=== PATIENT | female | born 1945 | race Caucasian/White ===

== ENCOUNTER 2017-05-09 02:27 | Inpatient (IN) | payer MEDICARE, OTHER ==
[2017-05-09] VITALS (27 sets, daily range): BP systolic 93–127; BP diastolic 46–79; PULSE 58–119; RESP 11–24; Ht 167.6 cm; Wt 80.1 kg
[~2017-05-09] VITALS: Ht 167.6 cm; Wt 80.1 kg
[2017-05-09] MEDS ORDERED: SOD CHLORIDE 0.9% 1,000 ML IV STA (02:31)
[2017-05-09] MEDS ORDERED: ONDANSETRON 4 MG INJ IV STA (02:31)
[2017-05-09] MEDS ORDERED: morphine 4 MG/ML VIAL IV STA (02:31)
--- NOTE | 2017-05-09 02:42 | ERD ---
ER Documentation Chief Complaint Chief Complaint STEMI- from home, 20 mins substernal, non-radiating pain HPI This is a 71-year-old female brought in by rescue for ST segment elevation myocardial infarction. Apparently patient was 20 minutes ago substernal nonradiating pain was mild diaphoresis. EKG loya read as inferior wall AK. Given aspirin and nitro in the field. Patient continues to have chest pain here. Code STEMI activated. Dr. Clementine العراقي notified. Key Account Coordinator activated. ROS All systems reviewed and are negative except as per history of present illness. Allergies Allergies: Coded Allergies: No Known Allergy (Unverified , 05/09/17) PMhx/Soc Hx Cardiac Disorders: Yes (htn) Smoking Status: Unknown if ever smoked Physical Exam Vitals Vital Signs Date Time Temp Pulse Resp B/P Pulse Ox O2 Delivery O2 Flow Rate FiO2 05/09/17 02:30 53 15 114/68 100 Physical Exam Const: [] Head: Atraumatic Eyes: Normal Conjunctiva ENT: Normal External Ears, Nose and Mouth. Neck: Full range of motion..~ No meningismus. Resp: Clear to auscultation bilaterally Cardio: Regular rate and rhythm, no murmurs Abd: Soft, non tender, non distended. Normal bowel sounds Skin: No petechiae or rashes Back: No midline or flank tenderness Ext: No cyanosis, or edema Neur: Awake and alert Psych: Normal Mood and Affect Results 24 hrs Current Medications Medications (Trade) Dose Ordered Sig/Michelle Route PRN Reason Start Time Stop Time Status Last Admin Dose Admin Sodium Chloride (NS) 1,000 ml @ 1,000 mls/hr Q1H STAT IV 05/09/17 02:31 05/09/17 03:30 Morphine Sulfate (morphine) 4 mg ONCE STAT IV 05/09/17 02:31 05/09/17 02:33 DC Ondansetron HCl (Zofran Inj) 4 mg ONCE STAT IV 05/09/17 02:31 05/09/17 02:33 DC Procedures/MDM EKG: Rate/Rhythm: [Normal Sinus Rhythm] QRS, ST, T-waves: ST segment elevations 2 3 aVF Reciprocal changes in V4 V5 V6 Impression: STEMI Chest X-ray 1V Interpreted by me: Soft Tissue: No acute abnormalities Bones: No acute abnormalities Mediastinum/Cardiac Silhouette/Lungs: [No acute abnormalities] Patient's symptoms are concerning for cardiac cause will require inpatient workup and continuous monitoring. Further w/u for ischemia, arrhythmia, PE or dissection will be deferred to the inpatient team. Accepting Care Team: Current data and ongoing care discussed. Time: 241 Primary Provider: Hospitalist Consulting: Dr. Lin Outstanding Data: none Critical Care: Time: 31 minutes Treatments/Evaluations: Close monitoring and treatment of unstable vital signs, cardiorespiratory, and neurologic status, while maintaining tight balance of fluid, respiratory, and cardiac interventions. This time is independent of any procedural time Departure Diagnosis: Primary Impression: ST elevation myocardial infarction (STEMI) Involved coronary artery: unspecified coronary artery Qualified Code: I21.3 - ST elevation myocardial infarction (STEMI), unspecified artery Condition: Critical ELIZABETH CAMPBELL May 09, 2017 02:42
[2017-05-09 02:53] LABS: BASOPHIL # 0.1 10^3/ul (0.0-0.1); BASOPHILS % 0.6 % (0.0-2.0); EOSINOPHILS # 0.3 10^3/ul (0.0-0.5); EOSINOPHILS % 3.2 % (0.0-7.0); HEMATOCRIT 37.4 % (37.0-47.0); HEMOGLOBIN 12.3 g/dl (12.0-16.0); LYMPHOCYTES # 2.5 10^3/ul (0.8-2.9); LYMPHOCYTES % 25.1 % (15.0-51.0); MEAN CORPUSCULAR HEMOGLOBIN 28.2 pg (29.0-33.0); MEAN CORPUSCULAR HGB CONC 32.9 g/dl (32.0-37.0); MEAN CORPUSCULAR VOLUME 85.8 fl (82.0-101.0); MEAN PLATELET VOLUME 9.7 fl (7.4-10.4); MONOCYTE # 0.4 10^3/ul (0.3-0.9); MONOCYTES % 4.2 % (0.0-11.0); NEUTROPHIL # 6.7 10^3/ul (1.6-7.5); NEUTROPHILS % 66.7 % (39.0-77.0); PLATELET COUNT 245 10^3/UL (140-415); RED BLOOD COUNT 4.36 10^6/ul (4.20-5.40); RED CELL DISTRIBUTION WIDTH 13.3 % (11.5-14.5); WHITE BLOOD COUNT 10.1 10^3/ul (4.8-10.8)
--- NOTE | 2017-05-09 02:59 | RADRPT ---
PROCEDURE: Portable chest x-ray. CLINICAL INDICATION: Chest pain. TECHNIQUE: Portable AP view of the chest. COMPARISON: None. FINDINGS: Transcutaneous pacer pads project over the chest. There is vascular congestion. The cardiac silhou ette is enlarged. No pleural effusion is seen. There is no pneumothorax. IMPRESSION: 1. Vascular congestion. 2. Transcutaneous pacer pads. 3. Enlarged cardiac silhouette. RPTAT: HTAR .Sha Newell MD, MD Date Time Electronically viewed and signed by .Sha Newell MD, on 05/09/2017 02:59 .R/
[2017-05-09] MEDS ORDERED: LIDOCAINE 1% (MDV) 20 ML INJ ONE (03:05)
[2017-05-09] MEDS ORDERED: HEPARIN 1000 UNITS/ML 10 ML INJ ONE (03:05)
[2017-05-09] MEDS ORDERED: IOHEXOL 350MG/ML 50 ML BTL ONE ×2 (03:06→04:03)
[2017-05-09] MEDS ORDERED: IODIXANOL LOCM 100 ML BTL ONE (03:06)
[2017-05-09] MEDS ORDERED: MIDAZOLAM 1 MG/ML 2 ML INJ ONE (03:06)
[2017-05-09] MEDS ORDERED: FENTAnyl 50 MCG/ML VIAL ONE (03:06)
[2017-05-09] MEDS ORDERED: NITROGLYCERIN (IC) 100 MCG/ML INJ ONE (03:06)
[2017-05-09] MEDS ORDERED: VERAPAMIL 5 MG INJ ONE (03:06)
[2017-05-09 03:12] LABS: ALBUMIN/GLOBULIN RATIO 1.42; CALCIUM 9.7 mg/dl (8.4-10.2); CREATININE 1.39 mg/dl (0.44-1.00); POTASSIUM 4.1 mmol/L (3.5-5.1); TOTAL PROTEIN 6.8 g/dl (6.1-8.1)
[2017-05-09 03:25] LABS: TROPONIN-I 0.02 ng/ml (0.00-0.12)
[2017-05-09] MEDS ORDERED: ACETAMINOPHEN 650MG/20.3ML CUP PO PRN (03:30)
[2017-05-09] MEDS ORDERED: NITROGLYCERIN (SL) 0.4 MG TAB SL PRN (03:30)
[2017-05-09] MEDS ORDERED: ONDANSETRON 4 MG INJ IV PRN (03:30)
[2017-05-09] MEDS ORDERED: TICAGRELOR 90 MG TABLET ONE (03:36)
[2017-05-09 04:08] LABS: CHOL/HDL RATIO 5.1 RATIO; MAGNESIUM 1.6 mg/dl (1.7-2.5)
[2017-05-09] MEDS ORDERED: BIVALIRUDIN 250MG /NS 50 ML 50 ML IVPB ONE ×2 (04:14→04:15)
[2017-05-09] MEDS ORDERED: SOD CHLORIDE 0.9% 1,000 ML IV SCH (04:15)
--- NOTE | 2017-05-09 04:28 | OPR ---
Date/Time of Note Date/Time of Note DATE: 05/09/17 TIME: 04:20 Operative Report Procedure Date: May 09, 2017 Preoperative Diagnosis Myocardial infarction Postoperative Diagnosis Obstructive coronary artery disease Operation/Procedure Performed Left heart catheterization Right and left coronary angiogram Interpretation and supervision of right left coronary angiogram Left ventricular pressure measurements and left ventriculogram PCI of the mid RCA with the placement of a 3.0 x 20 mm Synergy drug-eluting stent, postdilated to 3.5 mm Intravascular ultrasound of the RCA Right femoral artery approach Conscious sedation Surgeon see signature line Bradder None Anesthesia Type: other (Conscious sedation) Estimated Blood Loss: minimal Transfusion none Specimen None Grafts/Implants 3.0 x 20 mm Synergy drug-eluting stent Complications none Pt Condition Post Procedure: guarded Procedure Description Findings Hemodynamics LV pressure 130/8 with EDP of 28 Aortic on pullback 134/58 Coronary anatomy Left main is a medium caliber vessel with no significant disease. Circumflex is a medium caliber vessel and after the bifurcation of the second obtuse marginal, there is an 80% stenosis. LAD is a medium caliber vessel with a proximal 20% stenosis, mid vessel after the second diagonal which is a medium caliber vessel, there is a 40-50% stenosis in the mid LAD RCA is a medium caliber vessel and dominant with a mid 99% stenosis Left ventriculogram with ejection fraction 60%. Patient was brought to the [facility] T[facility]. Informed consent was obtained. Patient was prepped and draped as per protocol. Right femoral artery access was obtained with ultrasound guidance using a micropuncture kit. 6 [place] sheath was placed in the right femoral artery. JL 3.5 diagnostic catheter was used to engage the left main and angiogram was performed. We next used a 6 [place] JR4 catheter to engage the RCA antrum was performed. This demonstrated severe stenosis in the mid RCA which was our culprit lesion. Angiomax was used for anticoagulation, a run through wire was used to cross the lesion with moderate difficulty. We predilated and stented with a 3.0 x 20 mm Synergy drug-eluting stent. We then postdilated initially with a 3.25 noncompliant balloon and a 3.5 noncompliant balloon. Given the tapering of the vessel, I proceeded with intravascular ultrasound to confirm good stent apposition. The stent was well opposed except for the ostial portion of the stent with a small area of poor apposition. We went back in with a 3.5 noncompliant balloon in this region and post dilation was performed. There was an excellent angiographic result with NAZIA-3 flow with no evidence of dissection. We next entered the left ventricle and left ventriculogram was performed. We then use an Angio-Seal device in the right femoral artery. By the end of the procedure, patient with minimal chest discomfort and remained hemodynamically stable. Findings discussed with patient 's daughter. Recommendations Dual antiplatelet therapy, aggressive risk factor modification. Kenny Lin DO May 09, 2017 04:28
[2017-05-09] MEDS ORDERED: FUROSEMIDE 20 MG INJ IV ONE (04:30)
[2017-05-09] MEDS: BIVALIRUDIN 250MG /NS 50 ML 50 ML IVPB SCH ×3 (04:30→07:37)
[2017-05-09] MEDS ORDERED: FUROSEMIDE 40 MG INJ ONE (04:31)
--- NOTE | 2017-05-09 04:32 | CONS ---
Date/Time of Note Date/Time of Note DATE: 05/09/17 TIME: 04:31 Assessment/Plan Assessment/Plan Additional Assessment/Plan Inferior ST elevation DE Obstructive coronary artery disease status post PCI to the RCA with drug- eluting stenting Acute decompensated diastolic congestive heart failure History of hypertension Preserved ejection fraction Renal dysfunction Tobacco use -Patient with evidence of inferior ST elevation DE. Angiogram with severe stenosis in the RCA and moderate stenosis in the circumflex. Patient status post drug-eluting stenting to the RCA. Continue dual antiplatelet therapy, statin therapy, check echocardiogram. If heart rate and blood pressure permits , would start beta-ashly as tolerated. Hold off on CHERY inhibitor given renal dysfunction. Patient with hypoxia when initially presented in mild pulmonary vascular congestion on chest x-ray and coarse breath sounds on examination. Status post 1 dose of IV Lasix after cardiac cath. ICU care Consultation Date/Type/Reason Admit Date/Time Type of Consultation: cv Reason for Consultation Myocardial infarction Hx of Present Illness This is a 71-year-old female with past medical history of diabetes, hypertension , tobacco use who presents with shortness of breath waxing and waning for 3 or 4 days and intermittent chest pain, worse so this evening. Patient found to have inferior ST elevation DE and code STEMI was called. Patient taken emergently to the cardiac Optician. Patient status post coronary intervention with PCI to RCA. At the current time, chest pain is minimal, denies shortness of breath, dizziness or lightheadedness. History obtained from the patient and 2 daughters. 12 point review of systems was performed with all pertinent positives and negatives mentioned above and all else is negative Past Medical History Medical History: coronary artery disease, diabetes, high cholesterol, hypertension Family History Significant Family History: heart disease Social History Smoking Status: Current every day smoker Exam/Review of Systems Vital Signs Vitals Vital Signs Date Time Temp Pulse Resp B/P Pulse Ox O2 Delivery O2 Flow Rate FiO2 05/09/17 02:41 Nasal Cannula 3 05/09/17 02:30 53 15 114/68 100 Exam No apparent distress Constitutional: alert, obese, oriented Head: normocephalic Respiratory: other (Coarse breath sounds bilaterally, no wheezing) Cardiovascular: other (S1-S2 heard), regular rate and rhythm Gastrointestinal: bowel sounds, non-tender, soft Extremities: edema (Trace) Results Result Diagram: 05/09/172 05/09/17 0242 Results 24 hrs Laboratory Tests Test 05/09/17 02:42 White Blood Count 10.1 Red Blood Count 4.36 Hemoglobin 12.3 Hematocrit 37.4 Mean Corpuscular Volume 85.8 Mean Corpuscular Hemoglobin 28.2 L Mean Corpuscular Hemoglobin Concent 32.9 Red Cell Distribution Width 13.3 Platelet Count 245 Mean Platelet Volume 9.7 Neutrophils % 66.7 Lymphocytes % 25.1 Monocytes % 4.2 Eosinophils % 3.2 Basophils % 0.6 Nucleated Red Blood Cells % 0.0 Neutrophils # 6.7 Lymphocytes # 2.5 Monocytes # 0.4 Eosinophils # 0.3 Basophils # 0.1 Nucleated Red Blood Cells # 0.0 Sodium Level 139 Potassium Level 4.1 Chloride Level 103 Carbon Dioxide Level 23 Anion Gap 17 H Blood Urea Nitrogen 32 H Creatinine 1.39 H Glucose Level 237 H Calcium Level 9.7 Magnesium Level 1.6 L Total Bilirubin 0.0 L Direct Bilirubin 0.00 Indirect Bilirubin 0.0 Aspartate Amino Transf (AST/SGOT) 24 Alanine Aminotransferase (ALT/SGPT) 27 Alkaline Phosphatase 92 Troponin I 0.020 B-Type Natriuretic Peptide 592 H Total Protein 6.8 Albumin 4.0 Globulin 2.80 Albumin/Globulin Ratio 1.42 Triglycerides Level 170 H Cholesterol Level 204 H LDL Cholesterol, Calculated 130 HDL Cholesterol 40 Cholesterol/HDL Ratio 5.1 Thyroid Stimulating Hormone (TSH) Pending Medications Medications Current Medications Ondansetron HCl (Zofran Inj) 4 mg Q6H PRN IV NAUSEA AND/OR VOMITING; Start at 03:30 Nitroglycerin (Nitroglycerin (Sl Tab) 0.4 Mg) 1 tab Q5M PRN SL CHEST PAIN; Start 05/09/17 at 03:30 Acetaminophen (Tylenol Liquid) 650 mg Q6H PRN PO PAIN LEVEL 1-3 OR FEVER; Start 05/09/17 at 03:30 Pantoprazole (Protonix Iv) 40 mg DAILY@06 IV ; Start 05/09/17 at 06:00 Procedures Procedures ECG with inferior ST elevation DE Kenny Lin DO May 09, 2017 04:32
[2017-05-09] MEDS ORDERED: MAGNESIUM SULFATE 1 GM/D5W 100 ML IVPB ONE ×2 (05:00→12:00)
[2017-05-09 05:52] LABS: THYROID STIMULATING HORMONE 4.71 MIU/L (0.465-4.680)
[2017-05-09] MEDS ORDERED: PANTOPRAZOLE 40 MG INJ IV SCH (06:00)
[2017-05-09] MEDS ORDERED: GLUCOSE GEL 15 GRAM TUBE BUCCAL PRN (06:15)
[2017-05-09] MEDS ORDERED: GLUCAGON 1 MG INJ IM PRN (06:15)
[2017-05-09] MEDS ORDERED: GLUCOSE GEL 15 GRAM TUBE PO PRN ×2 (06:15)
[2017-05-09] MEDS ORDERED: DEXTROSE 50% 50 ML SYRINGE IV PRN ×2 (06:15)
[2017-05-09] MEDS: INSULIN ASPART [NOVOLOG] 3 ML PEN SC SCH ×4 (08:54→20:55)
[2017-05-09] MEDS: ASPIRIN (EC) 81 MG TAB PO SCH (09:06)
[2017-05-09] MEDS: TICAGRELOR 90 MG TABLET PO SCH ×2 (09:08→20:53)
--- NOTE | 2017-05-09 09:36 | HP ---
Date/Time of Note Date/Time of Note DATE: 05/09/17 TIME: 09:31 Assessment/Plan VTE Prophylaxis VTE Prophylaxis Intervention: SCD's Lines/Catheters IV Catheter Type (from [facility]): Saline Lock Urinary Cath still in place: Yes Assessment/Plan Chief Complaint/Hosp Course This is a 71-year-old female was admitted to the ICU floor for: #1 acute STEMI: Patient had ST elevations in 2 3 and aVF. Patient was taken to the [facility] emergently. Patient had a drug-eluting stent placed in the RCA. Patient will continue on dual antiplatelet therapy. Will check a hemoglobin C, lipid panel, thyroid. #2 diabetes mellitus: We will hold patient's home medications, continue patient on insulin sliding scale #3 hypertension: We will continue patient's home medications. Patient likely also would benefit from an CHERY inhibitor as well however we will need to monitor renal function for this. Problems: HPI/ROS Admit Date/Time Admit Date/Time Hx of Present Illness Chief complaint: Chest pain This is a 71-year-old female who presented to the ER with chest pain. She was subsequently found to have a ST elevation in 2 3 and aVF. Apparently as per the daughter she stated that the patient started noticing shortness of breath when walking while she was in [place]. Family does state that they flew to [place]. The shortness of breath was on and off throughout the weekend. And then this morning at around 1:30 AM the patient called the daughter stating that she had chest pain and pressure. Patient also was noted to be diaphoretic. Stat STEMI was called. Patient was taken into the [facility] and had a stent to the RCA put in. Allergies: NKDA Medications: See SHIRA PERKINS Const: As per HPI Eyes : No pain discharge or redness or change in visual acuity ENT: No pain, sore throat, congestion, congestion, dysphagia or discharge Respiratory: No shortness of breath, cough, sputum, wheezing, or pleuritic pain Cardiovascular: As per HPI GI : no change in appetite, abdominal pain, nausea, vomiting, diarrhea, constipation, or change in the color his stool Genitourinary: No dysuria, hematuria, flank pain , discharge or CVA tenderness Musculoskeletal: No joint pain, back pain, neck pain, restricted range of motion in neck or joints Skin: No rash, bruising or hives Neuro: No headache, dizziness, syncope, seizure, focal weakness Endocrine: No polyuria, polydipsia, temperature intolerance Psych: No hallucination, depression, anxiety or suicidal ideation PMH/Family/Social Past Medical History Diabetes mellitus, hypertension, hypothyroidism Past Surgical History Cholecystectomy, adrenal tumor removal Family History Significant Family History: heart disease (Mom, brothers) Social History Alcohol Use: none Smoking Status: Current some day smoker (1 cigarette a day 20) Drug Use: none Exam/Review of Systems Vital Signs Vitals Vital Signs Date Time Temp Pulse Resp B/P Pulse Ox O2 Delivery O2 Flow Rate FiO2 05/09/17 09:00 63 12 111/67 98 Room Air 05/09/17 07:30 97.1 05/09/17 06:30 10.0 Intake and Output 05/08/17 05/08/17 05/09/17 15:00 23:00 07:00 Intake Total 150.00 ml Output Total 800 ml Balance -650.00 ml Exam Exam General: Patient was seen and examined at the bedside status post cardiac cath. HEENT: Atraumatic, normocephalic. The pupils are equal, round and reactive. Extraocular motor are intact Neck: Supple with full range of motion. No rigidity or meningismus Chest: Nontender Lungs: Clear to auscultation bilaterally no crackles rales or wheezing Heart: Normal S1-S2, Regular rhythm and rate. No murmur, S3, or S4 Abdomen: Soft , nontender, nondistended , bowel sounds are present. No guarding no rebound tenderness , No masses or organomegaly. No costovertebral temporal angle mass Extremities: Normal to inspection, no edema no cyanosis Neurologic: Normal mental status, speech normal, cranial nerves II through XII are intact, motor and sensory are intact, no focal weakness Labs Result Diagram: 05/09/17 0242 05/09/17 0242 Medications Medications Current Medications Ondansetron HCl (Zofran Inj) 4 mg Q6H PRN IV NAUSEA AND/OR VOMITING; Start at 03:30 Nitroglycerin (Nitroglycerin (Sl Tab) 0.4 Mg) 1 tab Q5M PRN SL CHEST PAIN Last administered on 05/09/17t 05:35; Admin Dose 1 TAB; Start 05/09/17 at 03:30 Acetaminophen (Tylenol Liquid) 650 mg Q6H PRN PO PAIN LEVEL 1-3 OR FEVER; Start 05/09/17 at 03:30 Pantoprazole (Protonix Iv) 40 mg DAILY@06 IV Last administered on 05/09/17 05 :35; Admin Dose 40 MG; Start 05/09/17 at 06:00 Aspirin (Halfprin) 81 mg DAILY PO Last administered on 05/09/17 09:06; Admin Dose 81 MG; Start 05/09/17 at 09:00 Ticagrelor (Brilinta) 90 mg BID PO Last administered on 05/09/17 09:08; Admin Dose 90 MG; Start 05/09/17 at 09:00 Atorvastatin Calcium (Lipitor) 80 mg DAILY@21 PO ; Start 05/09/17 at 21:00 Diagnostic Test (Pha) (Accu-Chek) 1 ea 02 XX ; Start 05/10/17 at 02:00 Miscellaneous Information 1 ea NOTE XX ; Start 05/09/17 at 06:15 Glucose (Glutose) 15 gm Q15M PRN PO DECREASED GLUCOSE; Start 05/09/17 at 06:15 Glucose (Glutose) 22.5 gm Q15M PRN PO DECREASED GLUCOSE; Start 05/09/17 at 06: 15 Dextrose (D50w Syringe) 25 ml Q15M PRN IV DECREASED GLUCOSE; Start 05/09/17 at 06:15 Dextrose (D50w Syringe) 50 ml Q15M PRN IV DECREASED GLUCOSE; Start 05/09/17 at 06:15 Glucagon (Glucagen) 1 mg Q15M PRN IM DECREASED GLUCOSE; Start 05/09/17 at 06: 15 Glucose (Glutose) 15 gm Q15M PRN BUCCAL DECREASED GLUCOSE; Start 05/09/17 at 06:15 JAIR ROWE May 09, 2017 09:36
[2017-05-09] MEDS: INSULIN GLARGINE [LANtus] 3 ML PEN SC SCH (13:59)
--- NOTE | 2017-05-09 16:13 | RADRPT ---
Echocardiogram Report Patient Name: VIKTORIYA SOTO Gender: Female Date: 1945 Study Date: 09-May-2017 [employer] Courtesy Clerk: Marlen Sifuentes RDCS Location: 110 Ref. Physician: JAIR ROWE Quality: Good Procedures: Transthoracic echocardiogram with complete 2D, M-Mode, and doppler examination. Indications: STEMI. 2D/M Mode Doppler Measurement Value Normal Ranges Measurement Value Normal Ranges LVIDd 2D 4.6 3.5 - 5.6 cm AV Peak Mitch 1.3 m/sec LVIDs 2D 3.4 2.1 - 4.1 cm AV Peak PG 6.3 mmHg LVPWd 2D 1.3 0.6 - 1.1 cm AI Peak PG 63.2 mmHg IVSd 2D 1.2 0.6 - 1.1 cm AI Peak Mitch 4.0 m/sec AoR Diam 2D 3.0 2.0 - 3.7 cm AI PHT 578.2 msec EDV 2D 97.8 cm3 LVOT Peak Mitch 0.5 m/sec ESV 2D 38.4 cm3 LVOT Peak PG 1.2 mmHg LA Dimen 2D 3.5 2.3 - 4.0 cm MV E Peak Mitch 0.6 m/sec MV A Peak Mitch 0.9 m/sec MV E/A 0.7 MV Decel Time 220 msec MV Decel [place] 3 MV E/A 0.7 Findings Left Ventricle: Normal left ventricular systolic function. Normal left ventricular cavity size. Mild concentric left ventricular hypertrophy. Ejection fraction is visually estimated at 55 %. Tissue Doppler/Mitral Doppler indices are consistent with impaired relaxation (Stage I diastolic dysfunction). These segments of the LV are hypokinetic inferolateral base, inferior base segment and inferior mid segment. Right Ventricle: Normal right ventricular size. Normal right ventricular systolic function. Left Atrium: The left atrium is normal in size. Right Atrium: The right atrium is normal in size. Mitral Valve: Mitral valve leaflets appear mildly thickened. Mild mitral annular calcification. Mild mitral valve regurgitation. Aortic Valve: No hemodynamically significant aortic stenosis by doppler. Aortic cusps appear mildly calcified. Mild aortic valve regurgitation. Tricuspid Valve: Normal appearance and function of the tricuspid valve with trace physiologic regurgitation. Pulmonic Valve: Normal pulmonic valve appearance. There is trace pulmonic regurgitation. Pericardium: Normal pericardium with no significant pericardial effusion. Aorta: Normal aortic root. IVC: Normal size and normal respiratory collapse consistent with normal right atrial pressure. Conclusions 1.Normal left ventricular systolic function. Normal left ventricular cavity size. Mild concentric left ventricular hypertrophy. Ejection fraction is visually estimated at 55 %. Tissue Doppler/Mitral Doppler indices are consistent with impaired relaxation (Stage I diastolic dysfunction). 2.Normal right ventricular size. Normal right ventricular systolic function. 3.The left atrium is normal in size. 4.The right atrium is normal in size. 5.Mild mitral valve regurgitation. 6.No hemodynamically significant aortic stenosis by doppler. Mild aortic valve regurgitation. 7.Normal appearance and function of the tricuspid valve with trace physiologic regurgitation. 8.Normal pericardium with no significant pericardial effusion. Electronically Signed By: Kenny Lin 09-May-2017 16:12:34 -0800 Patient Name: VIKTORIYA SOTO Study Date: 09-May-2017 [id number]
--- NOTE | 2017-05-09 19:59 | HP ---
Date/Time of Note Date/Time of Note DATE: 05/09/17 TIME: 19:41 Assessment/Plan VTE Prophylaxis VTE Prophylaxis Intervention: ambulation, anti-embolic stocking VTE Contraindication Reason: peripheral vascular disease Lines/Catheters IV Catheter Type (from Nrsg): Peripheral IV Central line still needed: No Urinary Cath still in place: Yes Reason Cath still needed: other (indicate) (s/p ptca.) Assessment/Plan Assessment/Plan #1. IHD angina; acute STEMI:s/p drug-eluting stent placed in the RCA. Patient will continue on dual antiplatelet therapy. Will check a hemoglobin C, lipid panel, thyroid. #2 diabetes mellitus type 2: on insulin sliding scale #3 hypertension: We will continue patient's home medications. Patient likely also would benefit from an CHERY inhibitor as well however we will need to monitor renal function for this. 4.DYslipidemia 5.Memory impairment 6.Obesity 7. LBP 8.BOOGIE of multiple joints 9.Anxiety d/o 10.Nausea and vomiting improved 11.Bradycardia 12.Hx of smoking and likes fatty food 13.Delusional ideas (everything else, except known risk factors,according to her, as a target to blame for her mi) obot the disease and her genetics and life style. In a presence of a daughter and son discussed the details of prevention of next SD. 14.Hypotension Cont'd Hospitalization Reason: s/p ptca. HPI/ROS Admit Date/Time Admit Date/Time Cp. Hx of Present Illness This is a 71-year-old female who presented to the ER with chest pain. She was having cp on and off more than a month but last week it become more troublesome. 05/03/2017 they flue to . She realized that she can't walk as she was able to walk before due to of a sob and ss pressure sensation. She was using some tablets from [employer] and relaxing drops which helped her. 3 days ago they returned from . Her pressure sensation got worse. Last night despite of cp and pressure sensation she went to the bed. She was unable to lay down. He straggled for air and to overcome a cp. Condition got worse at midnight, when the cp become intolerable. Nobody was able to help her except the grandson who is a student in [employer]. Patient also was noted to be nauseous, vomited, become diaphoretic and she was thinking that se is going to dye. He activated a system and paramedics arrived. 4 tablets of aspirin with other meds were given. Stat STEMI was called. She realized the necessity of the procedure and agreed to perform a PTCA. Patient was taken into the [facility] and had a stent to the RCA put in. Now she fells better. ROS Constitutional: chills, diaphoresis, fatigue, improved, nausea, poor po, No disoriented, No febrile, No no complaints, No other, No weight change Eyes: redness, No discharge, No no complaints, No other, No pain, No visual change ENT: congestion, No bleeding, No discharge, No dysphagia, No no complaints, No other, No pain , No sore throat Respiratory: No cough, No no complaints, No other, No pain, No pleuritic pain, No shortness of breath, No sputum, No wheezing Cardiovascular: chest pain (derrick now.) Gastrointestinal: constipation, decreased appetite, flatus, nausea, No blood, No diarrhea, No no complaints, No other, No pain, No passing stool , No vomiting Genitourinary: other (armstrong in place.), No bleeding, No discharge, No dysuria, No flank pain, No hematuria, No no complaints Musculoskeletal: back pain, bone/joint pain, No neck pain, No no complaints, No other, No restricted range of motion, No swelling Skin: bruising, erythema, pruritis, No laceration, No no complaints, No other, No rash, No skin lesions Neurologic: dizziness, headache, No confusion, No focal-weakness, No no complaints, No other, No seizure, No syncope Endocrine: No dry skin, No no complaints, No other, No polydypsia, No polyuria , No temp intolerance, No weight change Lymphatic: No adenopathy, No lymphadema, No no complaints, No other, No tender nodes Psychological: anxiety, depression, No confusion, No nl mood/affect, No no complaints, No other, No suicidal Immunologic: No immunodeficiency, No no complaints, No other, No pruritis, No rhinitis, No urticaria PMH/Family/Social Past Medical History Medical History: angina, coronary artery disease, diabetes, GERD, high cholesterol, hypertension Family History Significant Family History: heart disease, diabetes Social History Alcohol Use: none Smoking Status: Current every day smoker Drug Use: none Exam/Review of Systems Vital Signs Vitals Vital Signs Date Time Temp Pulse Resp B/P Pulse Ox O2 Delivery O2 Flow Rate FiO2 05/09/17 18:00 60 18 99/55 95 Room Air 05/09/17 16:00 97.2 05/09/17 06:30 10.0 Intake and Output 05/08/17 05/08/17 05/09/17 15:00 23:00 07:00 Intake Total 150.00 ml Output Total 800 ml Balance -650.00 ml Exam Constitutional: alert, oriented, well developed, No distress, No frail, No non-verbal, No other Psych: anxiety, depression, No confusion, No nl mood/affect, No no complaints, No other, No suicidal Head: atraumatic, normocephalic, No hematomas, No lacerations, No other Eyes: EOMI, PERRL, No fundi, disc, No icteric, No nl conjunctiva, No nl lids, No nl sclera, No other ENMT: nl external ears & nose, nl nasal mucosa & septum, tympanic membranes, No intubated, No mucosa pink and moist, No nl lips & teeth, No other Neck: bruits, jvd, nuchal rigidity, thyromegaly, No masses, No non-tender, No other, No supple Respiratory: clear to auscultation, diminished breath sounds, No congested cough, No crackles/rales, No intercostal retraction, No labored breathing, No normal air movement, No other, No respirations, No tactile fremitus, No wheezing Cardiovascular: bruits, jugular venous distention (JVD), systolic murmur Gastrointestinal: bowel sounds, nl liver, spleen, non-tender, soft, No ascites, No distended, No firm, No hepatomegaly, No mass, No other, No rebound or guarding, No splenomegaly, No surgical scars, No tender Genitourinary - Female: No CMT, No CVA tenderness, No nl adnexae, No nl external genitalia, No other, No uterus Musculoskeletal: joint tenderness, muscle tone, muscle weakness Extremities: normal pulses, No calf tenderness, No clubbing, No cyanosis, No edema, No other, No palpable cord, No pitting pedal edema, No tenderness Neurological: 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, DTR's symmetric, focal weakness, nl speech, numbness, No confused, No lethargic, No nl mental status, No nl strength, No other, No reflexes, No unresponsive Skin: diaphoresis, No ecchymosis, No laceration, No nl turgor, No other, No puncture, No rash or lesions Labs Result Diagram: 05/09/1724105/09/17241 Medications Medications Current Medications Ondansetron HCl (Zofran Inj) 4 mg Q6H PRN IV NAUSEA AND/OR VOMITING; Start at 03:30 Nitroglycerin (Nitroglycerin (Sl Tab) 0.4 Mg) 1 tab Q5M PRN SL CHEST PAIN Last administered on 05/09/17 05:35; Admin Dose 1 TAB; Start 05/09/17 at 03:30 Acetaminophen (Tylenol Liquid) 650 mg Q6H PRN PO PAIN LEVEL 1-3 OR FEVER; Start 05/09/17 at 03:30 Aspirin (Halfprin) 81 mg DAILY PO Last administered on 05/09/17 09:06; Admin Dose 81 MG; Start 05/09/17 at 09:00 Ticagrelor (Brilinta) 90 mg BID PO Last administered on 05/09/17 09:08; Admin Dose 90 MG; Start 05/09/17 at 09:00 Atorvastatin Calcium (Lipitor) 80 mg DAILY@21 PO ; Start 05/09/17 at 21:00 Diagnostic Test (Pha) (Accu-Chek) 1 ea 02 XX ; Start 05/10/17 at 02:00 Miscellaneous Information 1 ea NOTE XX ; Start 05/09/17 at 06:15 Glucose (Glutose) 15 gm Q15M PRN PO DECREASED GLUCOSE; Start 05/09/17 at 06:15 Glucose (Glutose) 22.5 gm Q15M PRN PO DECREASED GLUCOSE; Start 05/09/17 at 06: 15 Dextrose (D50w Syringe) 25 ml Q15M PRN IV DECREASED GLUCOSE; Start 05/09/17 at 06:15 Dextrose (D50w Syringe) 50 ml Q15M PRN IV DECREASED GLUCOSE; Start 05/09/17 at 06:15 Glucagon (Glucagen) 1 mg Q15M PRN IM DECREASED GLUCOSE; Start 05/09/17 at 06: 15 Glucose (Glutose) 15 gm Q15M PRN BUCCAL DECREASED GLUCOSE; Start 05/09/17 at 06:15 Insulin Glargine (Lantus) 16 unit DAILY@08 SC Last administered on 05/09/17t 13:59; Admin Dose 16 UNIT; Start 05/09/17 at 13:00 Pantoprazole (Protonix Tab) 40 mg DAILY@06 PO ; Start 05/10/17 at 06:00 JASON BALTAZAR MD May 09, 2017 19:53
[2017-05-09] MEDS: ATORVASTATIN 80 MG TAB PO SCH (20:52)
[2017-05-10] VITALS (24 sets, daily range): BP systolic 89–124; BP diastolic 40–91; PULSE 59–83; RESP 12–23
[2017-05-10] MEDS: ACCU-CHEK XX SCH (01:32)
[2017-05-10 05:14] LABS: BASOPHILS % 0.3 % (0.0-2.0); EOSINOPHILS # 0.1 10^3/ul (0.0-0.5); EOSINOPHILS % 0.9 % (0.0-7.0); HEMATOCRIT 35.9 % (37.0-47.0); HEMOGLOBIN 11.8 g/dl (12.0-16.0); LYMPHOCYTES # 1.6 10^3/ul (0.8-2.9); LYMPHOCYTES % 13.8 % (15.0-51.0); MEAN CORPUSCULAR HEMOGLOBIN 28.1 pg (29.0-33.0); MEAN CORPUSCULAR HGB CONC 32.9 g/dl (32.0-37.0); MEAN CORPUSCULAR VOLUME 85.5 fl (82.0-101.0); MEAN PLATELET VOLUME 9.9 fl (7.4-10.4); MONOCYTE # 0.6 10^3/ul (0.3-0.9); MONOCYTES % 5.2 % (0.0-11.0); NEUTROPHIL # 9.3 10^3/ul (1.6-7.5); NEUTROPHILS % 79.6 % (39.0-77.0); PLATELET COUNT 239 10^3/UL (140-415); RED CELL DISTRIBUTION WIDTH 13.5 % (11.5-14.5); WHITE BLOOD COUNT 11.7 10^3/ul (4.8-10.8)
[2017-05-10 05:52] LABS: CALCIUM 8.8 mg/dl (8.4-10.2); CREATININE 1.79 mg/dl (0.44-1.00); POTASSIUM 4.2 mmol/L (3.5-5.1)
[2017-05-10] MEDS ORDERED: MAGNESIUM SULFATE 2 GM/50 ML 50 ML IVPB ONE (06:30)
[2017-05-10] MEDS: SOD CHLORIDE 0.9% 1,000 ML IV SCH ×2 (06:54→19:53)
[2017-05-10] MEDS: PANTOPRAZOLE (EC) 40 MG TAB PO SCH (06:55)
[2017-05-10] MEDS: INSULIN ASPART [NOVOLOG] 3 ML PEN SC SCH ×4 (07:35→21:35)
--- NOTE | 2017-05-10 08:45 | PN ---
Date/Time of Note Date/Time of Note DATE: 05/10/17 TIME: 08:36 Assessment/Plan VTE Prophylaxis VTE Prophylaxis Intervention: ambulation, anti-embolic stocking VTE Contraindication Reason: peripheral vascular disease Lines/Catheters IV Catheter Type (from Nrs): Peripheral IV Urinary Cath still in place: Yes Reason Cath still needed: urinary retention Assessment/Plan Assessment/Plan 1. IHD angina; acute STEMI:s/p drug-eluting stent placed in the RCA. Patient will continue on dual antiplatelet therapy. Will check a hemoglobin C, lipid panel, thyroid. 2 diabetes mellitus type 2: on insulin sliding scale 3 hypertension: We will continue patient's home medications. Patient likely also would benefit from an CHERY inhibitor as well however we will need to monitor renal function for this. 4.Dyslipidemia 5.Memory impairment 6.Obesity 7. LBP 8.BOOGIE of multiple joints 9.Anxiety d/o 10.Nausea and vomiting improved 11.Bradycardia 12.Hx of smoking and likes fatty food 13.Delusional ideas (everything else, except known risk factors,according to her, as a target to blame for her mi) about the disease and her genetics and life style. Again discussed the details of prevention of next AL. Doctor's and patient's role. 14.Hypotension 15.Hypomagnesemia 16.Constipation Cont'd Hospitalization Reason: s/p mi. Subjective 24 Hr Interval Summary Free Text/Dictation Weakness, constipation. I am weak. No cp. Constitutional: diaphoresis, improved, poor po, requiring IVF, requiring O2, No chills, No disoriented, No febrile, No no complaints, No other Eyes: No discharge, No no complaints, No other, No pain, No redness, No visual change ENT: No bleeding, No congestion, No discharge, No dysphagia, No no complaints, No other, No pain, No sore throat Respiratory: shortness of breath (mild.), No cough, No no complaints, No other, No pain, No pleuritic pain, No sputum, No wheezing Cardiovascular: orthopenea, No chest pain, No edema, No lightheadedness, No no complaints, No other, No palpitations, No paroxysmal nocturnal dyspnea Gastrointestinal: constipation, decreased appetite, flatus, nausea, passing stool, No blood, No diarrhea, No no complaints, No other, No pain, No vomiting Genitourinary: dysuria, other (armstrong causing dyscomfort.), No bleeding, No discharge, No flank pain, No hematuria, No no complaints Musculoskeletal: back pain, bone/joint pain, neck pain, restricted range of motion, No no complaints, No other, No swelling Skin: erythema, No bruising, No laceration, No no complaints, No other, No pruritis, No rash , No skin lesions Neurologic: confusion (on and off.), dizziness, headache, other Endocrine: No dry skin, No no complaints, No other, No polydypsia, No polyuria , No temp intolerance Lymphatic: No adenopathy, No lymphadema, No no complaints, No other, No tender nodes Psychological: anxiety, other (become anxious when i opened the question about preventive metods, including cigaret smoking and lipid lowering measures as a risk reduction strategy for mi.) Exam/Review of Systems Vital Signs Vitals Vital Signs Date Time Temp Pulse Resp B/P Pulse Ox O2 Delivery O2 Flow Rate FiO2 05/10/17 06:00 69 17 104/56 94 Room Air 05/10/17 04:00 98.4 05/09/17 06:30 10.0 Intake and Output 05/09/17 05/09/17 05/10/17 15:00 23:00 07:00 Intake Total 400 ml 490 ml 115 ml Output Total 900 ml 610 ml 250 ml Balance -500 ml -120 ml -135 ml Exam Constitutional: alert, distress, oriented, well developed, No frail, No non-verbal, No obese, No other Psych: anxiety, depression, No confusion, No nl mood/affect, No no complaints, No other, No suicidal Head: atraumatic, normocephalic, No hematomas, No lacerations, No other Eyes: EOMI, PERRL, nl conjunctiva, nl lids, No fundi, disc, No icteric, No nl sclera, No other ENMT: nl external ears & nose, nl nasal mucosa & septum, No intubated, No mucosa pink and moist, No nl lips & teeth, No other, No tympanic membranes Neck: bruits, non-tender, supple Respiratory: clear to auscultation, congested cough, diminished breath sounds, normal air movement, No crackles/rales, No intercostal retraction, No labored breathing, No other , No respirations, No tactile fremitus, No wheezing Cardiovascular: bruits, nl pulses, systolic murmur, No S3, No S4, No diastolic murmur, No edema, No gallop, No irregular rhythm, No jugular venous distention (JVD), No murmurs/extra sounds, No other, No regular rate and rhythm, No rub Gastrointestinal: bowel sounds, nl liver, spleen, soft, No ascites, No distended, No firm, No hepatomegaly, No mass, No non-tender, No other, No rebound or guarding, No splenomegaly, No surgical scars, No tender Genitourinary - Female: other (armstrong drains clear urin.) Musculoskeletal: joint tenderness, muscle weakness Extremities: normal pulses, No calf tenderness, No clubbing, No cyanosis, No edema, No other, No palpable cord, No pitting pedal edema, No tenderness 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 (hearing impairment.), nl mental status, nl speech, numbness Skin: diaphoresis, ecchymosis, No laceration, No nl turgor, No other, No puncture, No rash or lesions Results Result Diagram: 05/10/175 05/10/17 0445 Results 24 hrs Laboratory Tests Test 05/09/17 08:51 05/09/17 12:53 05/09/17 16:44 05/09/17 20:52 Bedside Glucose 230 H 255 H 105 144 Test 05/10/17 04:45 White Blood Count 11.7 H Red Blood Count 4.20 Hemoglobin 11.8 L Hematocrit 35.9 L Mean Corpuscular Volume 85.5 Mean Corpuscular Hemoglobin 28.1 L Mean Corpuscular Hemoglobin Concent 32.9 Red Cell Distribution Width 13.5 Platelet Count 239 Mean Platelet Volume 9.9 Neutrophils % 79.6 H Lymphocytes % 13.8 L Monocytes % 5.2 Eosinophils % 0.9 Basophils % 0.3 Nucleated Red Blood Cells % 0.0 Neutrophils # 9.3 H Lymphocytes # 1.6 Monocytes # 0.6 Eosinophils # 0.1 Basophils # 0.0 Nucleated Red Blood Cells # 0.0 Sodium Level 136 Potassium Level 4.2 Chloride Level 101 Carbon Dioxide Level 27 Anion Gap 12 Blood Urea Nitrogen 36 H Creatinine 1.79 H Glucose Level 125 # Calcium Level 8.8 Magnesium Level 1.8 Medications Medications Current Medications Ondansetron HCl (Zofran Inj) 4 mg Q6H PRN IV NAUSEA AND/OR VOMITING; Start at 03:30 Nitroglycerin (Nitroglycerin (Sl Tab) 0.4 Mg) 1 tab Q5M PRN SL CHEST PAIN Last administered on 05/09/17 05:35; Admin Dose 1 TAB; Start 05/09/17 at 03:30 Acetaminophen (Tylenol Liquid) 650 mg Q6H PRN PO PAIN LEVEL 1-3 OR FEVER; Start 05/09/17 at 03:30 Aspirin (Halfprin) 81 mg DAILY PO Last administered on 05/09/17 09:06; Admin Dose 81 MG; Start 05/09/17 at 09:00 Ticagrelor (Brilinta) 90 mg BID PO Last administered on 05/09/17 20:53; Admin Dose 90 MG; Start 05/09/17 at 09:00 Atorvastatin Calcium (Lipitor) 80 mg DAILY@21 PO Last administered on 20:52; Admin Dose 80 MG; Start 05/09/17 at 21:00 Diagnostic Test (Pha) (Accu-Chek) 1 ea 02 XX Last administered on 05/10/17 01 :32; Admin Dose 1 EA; Start 05/10/17 at 02:00 Miscellaneous Information 1 ea NOTE XX ; Start 05/09/17 at 06:15 Glucose (Glutose) 15 gm Q15M PRN PO DECREASED GLUCOSE; Start 05/09/17 at 06:15 Glucose (Glutose) 22.5 gm Q15M PRN PO DECREASED GLUCOSE; Start 05/09/17 at 06: 15 Dextrose (D50w Syringe) 25 ml Q15M PRN IV DECREASED GLUCOSE; Start 05/09/17 at 06:15 Dextrose (D50w Syringe) 50 ml Q15M PRN IV DECREASED GLUCOSE; Start 05/09/17 at 06:15 Glucagon (Glucagen) 1 mg Q15M PRN IM DECREASED GLUCOSE; Start 05/09/17 at 06: 15 Glucose (Glutose) 15 gm Q15M PRN BUCCAL DECREASED GLUCOSE; Start 05/09/17 at 06:15 Insulin Glargine (Lantus) 16 unit DAILY@08 SC Last administered on 05/09/17 13:59; Admin Dose 16 UNIT; Start 05/09/17 at 13:00 Pantoprazole 40 mg 40 mg DAILY@06 PO Last administered on 05/10/17 06:55; Admin Dose 40 MG; Start 05/10/17 at 06:00 Sodium Chloride (NS) 1,000 ml @ 75 mls/hr [id number] IV Last administered on 06:54; Admin Dose 75 MLS/HR; Start 05/10/17 at 07:00; Stop 05/10/17 at 20:19 JASON BALTAZAR MD May 10, 2017 08:45
[2017-05-10] MEDS ORDERED: SOD CHLORIDE 0.9% 300 ML IV ONE (09:00)
[2017-05-10] MEDS: ASPIRIN (EC) 81 MG TAB PO SCH (09:01)
[2017-05-10] MEDS: TICAGRELOR 90 MG TABLET PO SCH ×2 (09:04→21:26)
[2017-05-10] MEDS: INSULIN GLARGINE [LANtus] 3 ML PEN SC SCH (09:06)
[2017-05-10 09:27] LABS: CHOL/HDL RATIO 5.2 RATIO
--- NOTE | 2017-05-10 10:51 | CONS ---
Date/Time of Note Date/Time of Note DATE: 05/10/17 TIME: 10:47 Assessment/Plan Assessment/Plan Additional Assessment/Plan Inferior ST elevation [place] Obstructive coronary artery disease status post PCI to the RCA with drug- eluting stenting History of hypertension, currently with hypotension Preserved ejection fraction Acute kidney injury with history of CKD Tobacco use -Patient denies chest pain or shortness of breath at the current time but did have some shortness of breath this morning. It could be expected to have intermittent shortness of breath with starting Brilinta. Of concern is patient' s worsening creatinine and borderline blood pressure. I have started IV fluids , continue dual antiplatelet therapy, statin therapy. No beta-ashly at the current time given borderline blood pressure and no CHERY inhibitor as well given borderline blood pressure and worsening renal function. Would continue to hold any nephrotoxic medications. Consultation Date/Type/Reason Admit Date/Time May 09, 2017 at 03:07 Initial Consult Date Type of Consultation: cv 24 HR Interval Summary Free Text/Dictation Denies chest pain, shortness of breath or dizziness Exam/Review of Systems Vital Signs Vitals Vital Signs Date Time Temp Pulse Resp B/P Pulse Ox O2 Delivery O2 Flow Rate FiO2 05/10/17 08:00 62 05/10/17 06:00 17 104/56 94 Room Air 05/10/17 04:00 98.4 05/09/17 06:30 10.0 Intake and Output 05/09/17 05/09/17 05/10/17 14:59 22:59 06:59 Intake Total 400 ml 490 ml 90 ml Output Total 900 ml 580 ml 280 ml Balance -500 ml -90 ml -190 ml Exam No apparent distress Constitutional: alert, obese, oriented Head: normocephalic Respiratory: clear to auscultation, normal air movement Cardiovascular: other (S1-S2 heard), regular rate and rhythm Gastrointestinal: bowel sounds, non-tender, soft Extremities: edema (Trivial), other (Right groin is soft, no hematoma) Results Result Diagram: 05/10/17 0445 05/10/17 0445 Results 24 hrs Laboratory Tests Test 05/09/17 12:53 05/09/17 16:44 05/09/17 20:52 05/10/17 04:45 Bedside Glucose 255 H 105 144 White Blood Count 11.7 H Red Blood Count 4.20 Hemoglobin 11.8 L Hematocrit 35.9 L Mean Corpuscular Volume 85.5 Mean Corpuscular Hemoglobin 28.1 L Mean Corpuscular Hemoglobin Concent 32.9 Red Cell Distribution Width 13.5 Platelet Count 239 Mean Platelet Volume 9.9 Neutrophils % 79.6 H Lymphocytes % 13.8 L Monocytes % 5.2 Eosinophils % 0.9 Basophils % 0.3 Nucleated Red Blood Cells % 0.0 Neutrophils # 9.3 H Lymphocytes # 1.6 Monocytes # 0.6 Eosinophils # 0.1 Basophils # 0.0 Nucleated Red Blood Cells # 0.0 Sodium Level 136 Potassium Level 4.2 Chloride Level 101 Carbon Dioxide Level 27 Anion Gap 12 Blood Urea Nitrogen 36 H Creatinine 1.79 H Glucose Level 125 # Hemoglobin A1c 8.3 H Calcium Level 8.8 Magnesium Level 1.8 Triglycerides Level 130 Cholesterol Level 180 LDL Cholesterol, Calculated 120 HDL Cholesterol 34 Cholesterol/HDL Ratio 5.2 Test 05/10/17 08:50 Bedside Glucose 114 Medications Medications Current Medications Ondansetron HCl (Zofran Inj) 4 mg Q6H PRN IV NAUSEA AND/OR VOMITING; Start at 03:30 Nitroglycerin (Nitroglycerin (Sl Tab) 0.4 Mg) 1 tab Q5M PRN SL CHEST PAIN Last administered on 05/09/17 05:35; Admin Dose 1 TAB; Start 05/09/17 at 03:30 Acetaminophen (Tylenol Liquid) 650 mg Q6H PRN PO PAIN LEVEL 1-3 OR FEVER; Start 05/09/17 at 03:30 Aspirin (Halfprin) 81 mg DAILY PO Last administered on 05/10/17 09:01; Admin Dose 81 MG; Start 05/09/17 at 09:00 Ticagrelor (Brilinta) 90 mg BID PO Last administered on 05/10/17 09:04; Admin Dose 90 MG; Start 05/09/17 at 09:00 Atorvastatin Calcium (Lipitor) 80 mg DAILY@21 PO Last administered on 20:52; Admin Dose 80 MG; Start 05/09/17 at 21:00 Diagnostic Test (Pha) (Accu-Chek) 1 ea 02 XX Last administered on 05/10/17 01 :32; Admin Dose 1 EA; Start 05/10/17 at 02:00 Miscellaneous Information 1 ea NOTE XX ; Start 05/09/17 at 06:15 Glucose (Glutose) 15 gm Q15M PRN PO DECREASED GLUCOSE; Start 05/09/17 at 06:15 Glucose (Glutose) 22.5 gm Q15M PRN PO DECREASED GLUCOSE; Start 05/09/17 at 06: 15 Dextrose (D50w Syringe) 25 ml Q15M PRN IV DECREASED GLUCOSE; Start 05/09/17 at 06:15 Dextrose (D50w Syringe) 50 ml Q15M PRN IV DECREASED GLUCOSE; Start 05/09/17 at 06:15 Glucagon (Glucagen) 1 mg Q15M PRN IM DECREASED GLUCOSE; Start 05/09/17 at 06: 15 Glucose (Glutose) 15 gm Q15M PRN BUCCAL DECREASED GLUCOSE; Start 05/09/17 at 06:15 Insulin Glargine (Lantus) 16 unit DAILY@08 SC Last administered on 05/10/17 09:06; Admin Dose 16 UNIT; Start 05/09/17 at 13:00 Pantoprazole 40 mg 40 mg DAILY@06 PO Last administered on 05/10/17 06:55; Admin Dose 40 MG; Start 05/10/17 at 06:00 Sodium Chloride (NS) 1,000 ml @ 75 mls/hr [id number] IV Last administered on 06:54; Admin Dose 75 MLS/HR; Start 05/10/17 at 07:00; Stop 05/10/17 at 20:19 Kenny Lin DO May 10, 2017 10:50
--- NOTE | 2017-05-10 15:10 | RADRPT ---
Vent Rate: 68 bpm RR Interval: 0 msec PA Interval: 0 msec QRS Duration: 132 msec QT Interval: 462 msec QTC Interval: 491 msec P-R-T [place]: 0 - -55 - 105 degrees Wide QRS rhythm with fusion complexes Left axis deviation Right bundle branch block Left ventricular hypertrophy with repolarization abnormality Inferior infarct , age undetermined Anterolateral infarct , age undetermined Abnormal ECG Electronically Signed By: Kenny Lin [id number]
--- NOTE | 2017-05-10 15:11 | RADRPT ---
Vent Rate: 71 bpm RR Interval: 0 msec RI Interval: 0 msec QRS Duration: 138 msec QT Interval: 468 msec QTC Interval: 508 msec P-R-T [place]: 0 - -53 - 103 degrees Wide QRS rhythm with occasional premature ventricular complexes Left axis deviation Right bundle branch block Left ventricular hypertrophy with repolarization abnormality Inferior infarct , age undetermined Anterolateral infarct , age undetermined Abnormal ECG Electronically Signed By: Kenny Lin [id number]
--- NOTE | 2017-05-10 15:16 | RADRPT ---
Vent Rate: 63 bpm RR Interval: 0 msec [place] Interval: 148 msec QRS Duration: 82 msec QT Interval: 470 msec QTC Interval: 480 msec P-R-T [place]: 42 - -18 - -68 degrees Normal sinus rhythm T wave abnormality, consider inferior ischemia T wave abnormality, consider anterolateral ischemia Prolonged QT Abnormal ECG Electronically Signed By: Kenny Lin [id number]
[2017-05-10] MEDS: ATORVASTATIN 80 MG TAB PO SCH (21:27)
[2017-05-11] VITALS (24 sets, daily range): BP systolic 89–149; BP diastolic 36–85; PULSE 64–87; RESP 12–23
[2017-05-11] MEDS: ACCU-CHEK XX SCH (02:53)
[2017-05-11] MEDS: PANTOPRAZOLE (EC) 40 MG TAB PO SCH (06:30)
[2017-05-11] MEDS: INSULIN ASPART [NOVOLOG] 3 ML PEN SC SCH ×4 (07:35→20:44)
[2017-05-11] MEDS: INSULIN GLARGINE [LANtus] 3 ML PEN SC SCH (08:15)
--- NOTE | 2017-05-11 08:25 | PN ---
Date/Time of Note Date/Time of Note DATE: 05/11/17 TIME: 08:23 Assessment/Plan VTE Prophylaxis VTE Prophylaxis Intervention: SCD's Lines/Catheters IV Catheter Type (from Nrs): Peripheral IV Urinary Cath still in place: No (removed per order) Assessment/Plan Assessment/Plan Inferior ST elevation [place] Obstructive coronary artery disease status post PCI to the RCA with drug- eluting stenting +Cx stenosis History of hypertension, currently with hypotension Preserved ejection fraction Acute kidney injury with history of CKD Tobacco use -Patient denies chest pain or shortness of breath at the current time but did have some shortness of breath this morning. It could be expected to have intermittent shortness of breath with starting Brilinta. Of concern is patient' s worsening creatinine and borderline blood pressure. I have started IV fluids , continue dual antiplatelet therapy, statin therapy. No beta-ashly at the current time given borderline blood pressure and no CHERY inhibitor as well given borderline blood pressure and worsening renal function. Would continue to hold any nephrotoxic medications. -Given above, mopnitor patient overnight -Given no symptoms, AKD/CKD and recent stemi, will teat medically with possible CX stenting as an outpatient --possible d/c plan tomoorow and may transfer to tele today -bmp pending from today Subjective 24 Hr Interval Summary Free Text/Dictation The patient with no cehst pain and no sob Exam/Review of Systems Vital Signs Vitals Vital Signs Date Time Temp Pulse Resp B/P Pulse Ox O2 Delivery O2 Flow Rate FiO2 05/11/17 07:30 98.8 74 13 98 05/11/17 07:00 97/46 Room Air 05/09/17 06:30 10.0 Intake and Output 05/10/17 05/10/17 05/11/17 15:00 23:00 07:00 Intake Total 970 ml 852 ml Output Total 300 ml 300 ml Balance 670 ml 552 ml Results Result Diagram: 05/10/17 0445 05/10/175 Results 24 hrs Laboratory Tests Test 05/10/17 08:50 05/10/17 12:34 05/10/17 18:19 05/10/17 21:19 Bedside Glucose 114 143 92 212 Test 05/11/17 02:54 05/11/17 07:48 Bedside Glucose 132 113 Medications Medications Current Medications Ondansetron HCl (Zofran Inj) 4 mg Q6H PRN IV NAUSEA AND/OR VOMITING; Start at 03:30 Nitroglycerin (Nitroglycerin (Sl Tab) 0.4 Mg) 1 tab Q5M PRN SL CHEST PAIN Last administered on 05/09/17 05:35; Admin Dose 1 TAB; Start 05/09/17 at 03:30 Acetaminophen (Tylenol Liquid) 650 mg Q6H PRN PO PAIN LEVEL 1-3 OR FEVER; Start 05/09/17 at 03:30 Aspirin (Halfprin) 81 mg DAILY PO Last administered on 05/10/17 09:01; Admin Dose 81 MG; Start 05/09/17 at 09:00 Ticagrelor (Brilinta) 90 mg BID PO Last administered on 05/10/17 21:26; Admin Dose 90 MG; Start 05/09/17 at 09:00 Atorvastatin Calcium (Lipitor) 80 mg DAILY@21 PO Last administered on 21:27; Admin Dose 80 MG; Start 05/09/17 at 21:00 Diagnostic Test (Pha) (Accu-Chek) 1 ea 02 XX Last administered on 05/11/17 02: 53; Admin Dose 1 EA; Start 05/10/17 at 02:00 Miscellaneous Information 1 ea NOTE XX ; Start 05/09/17 at 06:15 Glucose (Glutose) 15 gm Q15M PRN PO DECREASED GLUCOSE; Start 05/09/17 at 06:15 Glucose (Glutose) 22.5 gm Q15M PRN PO DECREASED GLUCOSE; Start 05/09/17 at 06: 15 Dextrose (D50w Syringe) 25 ml Q15M PRN IV DECREASED GLUCOSE; Start 05/09/17 at 06:15 Dextrose (D50w Syringe) 50 ml Q15M PRN IV DECREASED GLUCOSE; Start 05/09/17 at 06:15 Glucagon (Glucagen) 1 mg Q15M PRN IM DECREASED GLUCOSE; Start 05/09/17 at 06: 15 Glucose (Glutose) 15 gm Q15M PRN BUCCAL DECREASED GLUCOSE; Start 05/09/17 at 06:15 Insulin Glargine (Lantus) 16 unit DAILY@08 SC Last administered on 05/11/17 08 :15; Admin Dose 16 UNIT; Start 05/09/17 at 13:00 Pantoprazole (Protonix Tab) 40 mg DAILY@06 PO Last administered on 05/11/17t 06 :30; Admin Dose 40 MG; Start 05/10/17 at 06:00 MARIAN PRIETO MD May 11, 2017 08:25
[2017-05-11] MEDS: ASPIRIN (EC) 81 MG TAB PO SCH (08:36)
[2017-05-11] MEDS: TICAGRELOR 90 MG TABLET PO SCH ×2 (08:37→20:40)
[2017-05-11 10:07] LABS: BASOPHILS % 0.4 % (0.0-2.0); EOSINOPHILS # 0.2 10^3/ul (0.0-0.5); EOSINOPHILS % 2.1 % (0.0-7.0); HEMATOCRIT 33.7 % (37.0-47.0); HEMOGLOBIN 11.3 g/dl (12.0-16.0); LYMPHOCYTES # 1.3 10^3/ul (0.8-2.9); LYMPHOCYTES % 13.4 % (15.0-51.0); MEAN CORPUSCULAR HGB CONC 33.5 g/dl (32.0-37.0); MEAN CORPUSCULAR VOLUME 86.4 fl (82.0-101.0); MEAN PLATELET VOLUME 9.8 fl (7.4-10.4); MONOCYTE # 0.4 10^3/ul (0.3-0.9); MONOCYTES % 4.5 % (0.0-11.0); NEUTROPHIL # 7.7 10^3/ul (1.6-7.5); NEUTROPHILS % 79.4 % (39.0-77.0); PLATELET COUNT 211 10^3/UL (140-415); RED CELL DISTRIBUTION WIDTH 13.9 % (11.5-14.5); WHITE BLOOD COUNT 9.7 10^3/ul (4.8-10.8)
[2017-05-11 10:36] LABS: CREATININE 1.73 mg/dl (0.44-1.00); POTASSIUM 4.5 mmol/L (3.5-5.1)
--- NOTE | 2017-05-11 20:36 | PN ---
Date/Time of Note Date/Time of Note DATE: 05/11/17 TIME: 20:31 Assessment/Plan VTE Prophylaxis VTE Prophylaxis Intervention: ambulation, anti-embolic stocking VTE Contraindication Reason: peripheral vascular disease Lines/Catheters IV Catheter Type (from Nrsg): Peripheral IV Central line still needed: No Urinary Cath still in place: No Reason Cath still needed: urinary retention Assessment/Plan Assessment/Plan 1. IHD angina; acute STEMI:s/p drug-eluting stent placed in the RCA. Patient will continue on dual antiplatelet therapy. Will check a hemoglobinA1 C, lipid panel, tsh. 2 diabetes mellitus type 2: on insulin sliding scale 3 hypertension: We will continue patient's home medications. Patient likely also would benefit from an CHERY inhibitor as well however we will need to monitor renal function for this. 4.Dyslipidemia 5.Memory impairment 6.Obesity 7. LBP 8.BOOGIE of multiple joints 9.Anxiety d/o 10.Nausea and vomiting improved 11.Bradycardia 12.Hx of smoking and likes fatty food 13.Delusional ideas (everything else, except known risk factors,according to her, as a target to blame for her mi) about the disease and her genetics and life style. Again discussed the details of prevention of next SD. Doctor's and patient's role. 14.Hypotension 15.Hypomagnesemia 16.Constipation 17.CKD with elevated creatinine 1,7 after coronary intervention. Cont'd Hospitalization Reason: as above. Subjective 24 Hr Interval Summary Free Text/Dictation I feel much better. Constitutional: diaphoresis, improved, poor po, requiring O2, No chills, No disoriented, No febrile, No no complaints, No other, No requiring IVF Eyes: redness, No discharge, No no complaints, No other, No pain, No visual change ENT: No bleeding, No congestion, No discharge, No dysphagia, No no complaints, No other, No pain, No sore throat Respiratory: No cough, No no complaints, No other, No pain, No pleuritic pain, No shortness of breath, No sputum, No wheezing Cardiovascular: lightheadedness, No chest pain, No edema, No no complaints, No orthopenea, No other, No palpitations, No paroxysmal nocturnal dyspnea Gastrointestinal: constipation, decreased appetite, flatus, passing stool, No blood, No diarrhea, No nausea, No no complaints, No other, No pain, No vomiting Genitourinary: no complaints, No bleeding, No discharge, No dysuria, No flank pain, No hematuria, No other Musculoskeletal: bone/joint pain, No back pain, No neck pain, No no complaints, No other, No restricted range of motion, No swelling Skin: bruising, pruritis, No erythema, No laceration, No no complaints, No other, No rash, No skin lesions Neurologic: headache, No confusion, No dizziness, No focal-weakness, No no complaints, No other, No seizure, No syncope Lymphatic: No adenopathy, No lymphadema, No no complaints, No other, No tender nodes Psychological: anxiety, depression, nl mood/affect, No confusion, No no complaints, No other, No suicidal Exam/Review of Systems Vital Signs Vitals Vital Signs Date Time Temp Pulse Resp B/P Pulse Ox O2 Delivery O2 Flow Rate FiO2 05/11/17 20:23 87 05/11/17 19:31 98.6 18 120/63 95 05/11/17 18:00 Room Air 05/09/17 06:30 10.0 Intake and Output 05/10/17 05/10/17 05/11/17 15:00 23:00 07:00 Intake Total 970 ml 852 ml Output Total 300 ml 300 ml Balance 670 ml 552 ml Exam Constitutional: alert, frail, obese, oriented, well developed, No distress, No non-verbal, No other Psych: anxiety, depression, No confusion, No nl mood/affect, No no complaints, No other, No suicidal Head: atraumatic, No hematomas, No lacerations, No normocephalic, No other Eyes: EOMI, PERRL, nl lids ENMT: No intubated, No mucosa pink and moist, No nl external ears & nose, No nl lips & teeth, No nl nasal mucosa & septum, No other, No tympanic membranes Neck: bruits, jvd, non-tender, supple, No masses, No other, No thyromegaly Respiratory: clear to auscultation, congested cough, diminished breath sounds, No crackles/rales, No intercostal retraction, No labored breathing, No normal air movement, No other, No respirations, No tactile fremitus, No wheezing Cardiovascular: bruits, murmurs/extra sounds, No S3, No S4, No diastolic murmur, No edema, No gallop, No irregular rhythm, No jugular venous distention (JVD), No nl pulses, No other, No regular rate and rhythm, No rub, No systolic murmur Gastrointestinal: bowel sounds, distended, nl liver, spleen, non-tender, soft, No ascites, No firm, No hepatomegaly, No mass, No other, No rebound or guarding, No splenomegaly, No surgical scars, No tender Musculoskeletal: joint tenderness, muscle tone, muscle weakness, nl gait and stance, No nl extremities to inspection, No other, No range of motion, No spine non- tender, No swelling Extremities: normal pulses, No calf tenderness, No clubbing, No cyanosis, No edema, No other, No palpable cord, No pitting pedal edema, No tenderness Neurological: 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0 Mean Corpuscular Hemoglobin Concent 33.5 Red Cell Distribution Width 13.9 Platelet Count 211 Mean Platelet Volume 9.8 Neutrophils % 79.4 H Lymphocytes % 13.4 L Monocytes % 4.5 Eosinophils % 2.1 Basophils % 0.4 Nucleated Red Blood Cells % 0.0 Neutrophils # 7.7 H Lymphocytes # 1.3 Monocytes # 0.4 Eosinophils # 0.2 Basophils # 0.0 Nucleated Red Blood Cells # 0.0 Test 05/11/17 09:53 05/11/17 11:53 05/11/17 17:19 Sodium Level 137 Potassium Level 4.5 Chloride Level 103 Carbon Dioxide Level 27 Anion Gap 12 Blood Urea Nitrogen 33 H Creatinine 1.73 H Glucose Level 147 Calcium Level 9.0 Bedside Glucose 148 219 Medications Medications Current Medications Ondansetron HCl (Zofran Inj) 4 mg Q6H PRN IV NAUSEA AND/OR VOMITING; Start at 03:30 Nitroglycerin (Nitroglycerin (Sl Tab) 0.4 Mg) 1 tab Q5M PRN SL CHEST PAIN Last administered on 05/09/17 05:35; Admin Dose 1 TAB; Start 05/09/17 at 03:30 Acetaminophen (Tylenol Liquid) 650 mg Q6H PRN PO PAIN LEVEL 1-3 OR FEVER; Start 05/09/17 at 03:30 Aspirin (Halfprin) 81 mg DAILY PO Last administered on 05/11/17 08:36; Admin Dose 81 MG; Start 05/09/17 at 09:00 Ticagrelor (Brilinta) 90 mg BID PO Last administered on 05/11/17 08:37; Admin Dose 90 MG; Start 05/09/17 at 09:00 Atorvastatin Calcium (Lipitor) 80 mg DAILY@21 PO Last administered on 21:27; Admin Dose 80 MG; Start 05/09/17 at 21:00 Diagnostic Test (Pha) (Accu-Chek) 1 ea 02 XX Last administered on 05/11/17 02: 53; Admin Dose 1 EA; Start 05/10/17 at 02:00 Miscellaneous Information 1 ea NOTE XX ; Start 05/09/17 at 06:15 Glucose (Glutose) 15 gm Q15M PRN PO DECREASED GLUCOSE; Start 05/09/17 at 06:15 Glucose (Glutose) 22.5 gm Q15M PRN PO DECREASED GLUCOSE; Start 05/09/17 at 06: 15 Dextrose (D50w Syringe) 25 ml Q15M PRN IV DECREASED GLUCOSE; Start 05/09/17 at 06:15 Dextrose (D50w Syringe) 50 ml Q15M PRN IV DECREASED GLUCOSE; Start 05/09/17 at 06:15 Glucagon (Glucagen) 1 mg Q15M PRN IM DECREASED GLUCOSE; Start 05/09/17 at 06: 15 Glucose (Glutose) 15 gm Q15M PRN BUCCAL DECREASED GLUCOSE; Start 05/09/17 at 06:15 Insulin Glargine (Lantus) 16 unit DAILY@08 SC Last administered on 05/11/17 08 :15; Admin Dose 16 UNIT; Start 05/09/17 at 13:00 Pantoprazole (Protonix Tab) 40 mg DAILY@06 PO Last administered on 05/11/17 06 :30; Admin Dose 40 MG; Start 05/10/17 at 06:00 JASON BALTAZAR MD May 11, 2017 20:36
[2017-05-11] MEDS: ATORVASTATIN 80 MG TAB PO SCH (20:37)
[2017-05-11] MEDS ORDERED: MAGNESIUM SULFATE 2 GM/50 ML 50 ML IVPB ONE (21:00)
[2017-05-12] VITALS (9 sets, daily range): BP systolic 93–114; BP diastolic 53–59; PULSE 63–80; RESP 18
[2017-05-12] MEDS: ACCU-CHEK XX SCH (02:00)
[2017-05-12] MEDS: PANTOPRAZOLE (EC) 40 MG TAB PO SCH (06:26)
[2017-05-12 07:27] LABS: IRON 23 ug/dl (35-150)
[2017-05-12 07:37] LABS: TOTAL IRON BINDING CAPACITY 260 ug/dl (241-421)
[2017-05-12] MEDS: INSULIN ASPART [NOVOLOG] 3 ML PEN SC SCH ×3 (08:05→17:48)
[2017-05-12] MEDS: INSULIN GLARGINE [LANtus] 3 ML PEN SC SCH (08:06)
[2017-05-12] MEDS: ASPIRIN (EC) 81 MG TAB PO SCH (08:18)
[2017-05-12] MEDS: TICAGRELOR 90 MG TABLET PO SCH ×2 (08:21→19:59)
--- NOTE | 2017-05-12 09:26 | PN ---
Date/Time of Note Date/Time of Note DATE: 05/12/17 TIME: 09:25 Assessment/Plan VTE Prophylaxis VTE Prophylaxis Intervention: ambulation, anti-embolic stocking VTE Contraindication Reason: peripheral vascular disease Lines/Catheters IV Catheter Type (from Nrsg): Peripheral IV Central line still needed: No Urinary Cath still in place: No Reason Cath still needed: urinary retention Assessment/Plan Assessment/Plan 1. IHD angina; acute STEMI:s/p drug-eluting stent placed in the RCA. Patient will continue on dual antiplatelet therapy. Will check a hemoglobinA1 C, lipid panel, tsh. 2 diabetes mellitus type 2: on insulin sliding scale 3 hypertension: We will continue patient's home medications. Patient likely also would benefit from an CHERY inhibitor as well however we will need to monitor renal function for this. 4.Dyslipidemia 5.Memory impairment 6.Obesity 7. LBP 8.BOOGIE of multiple joints 9.Anxiety d/o 10.Nausea and vomiting improved 11.Bradycardia 12.Hx of smoking and likes fatty food 13.Delusional ideas (everything else, except known risk factors,according to her, as a target to blame for her mi) about the disease and her genetics and life style. Again discussed the details of prevention of next MS. Doctor's and patient's role. 14.Hypotension 15.Hypomagnesemia 16.Constipation 17.CKD with elevated creatinine 1,7 after coronary intervention. Cont'd Hospitalization Reason: as above. Subjective 24 Hr Interval Summary Free Text/Dictation left upper extremity itching with pain. After the failed mg iv injection. Constitutional: diaphoresis, poor po, No chills, No disoriented, No febrile, No improved, No no complaints, No other, No requiring IVF, No requiring O2 Eyes: redness, No discharge, No no complaints, No other, No pain, No visual change ENT: congestion, No bleeding, No discharge, No dysphagia, No no complaints, No other, No pain , No sore throat Respiratory: No cough, No no complaints, No other, No pain, No pleuritic pain, No shortness of breath, No sputum, No wheezing Cardiovascular: No chest pain, No edema, No lightheadedness, No no complaints, No orthopenea, No other, No palpitations, No paroxysmal nocturnal dyspnea Gastrointestinal: constipation, diarrhea, No blood, No decreased appetite, No flatus, No nausea, No no complaints, No other, No pain, No passing stool, No vomiting Genitourinary: dysuria, No bleeding, No discharge, No flank pain, No hematuria, No no complaints, No other Musculoskeletal: bone/joint pain, neck pain, No back pain, No no complaints, No other, No restricted range of motion, No swelling Skin: bruising, erythema, pruritis, rash (left forearm.), No laceration, No no complaints, No other, No skin lesions Psychological: anxiety, No confusion, No depression, No nl mood/affect, No no complaints, No other, No suicidal Exam/Review of Systems Vital Signs Vitals Vital Signs Date Time Temp Pulse Resp B/P Pulse Ox O2 Delivery O2 Flow Rate FiO2 05/12/17 07:40 98.0 66 18 109/59 98 05/11/17 18:00 Room Air 05/09/17 06:30 10.0 Intake and Output 05/11/17 05/11/17 05/12/17 15:00 23:00 07:00 Intake Total 490 ml 120 ml 650 ml Output Total 1200 ml 600 ml Balance -710 ml -480 ml 650 ml Exam Constitutional: alert, distress, frail, obese, oriented, well developed, No non-verbal, No other Psych: anxiety, No confusion, No depression, No nl mood/affect, No no complaints, No other, No suicidal Head: atraumatic, normocephalic, No hematomas, No lacerations, No other Eyes: EOMI, PERRL, nl lids, No fundi, disc, No icteric, No nl conjunctiva, No nl sclera, No other ENMT: No intubated, No mucosa pink and moist, No nl external ears & nose, No nl lips & teeth, No nl nasal mucosa & septum, No other, No tympanic membranes Neck: bruits, jvd, nuchal rigidity, No masses, No non-tender, No other, No supple, No thyromegaly Respiratory: congested cough, diminished breath sounds, No clear to auscultation, No crackles/rales, No intercostal retraction, No labored breathing, No normal air movement, No other, No respirations, No tactile fremitus, No wheezing Cardiovascular: bruits, systolic murmur, No S3, No S4, No diastolic murmur, No edema, No gallop, No irregular rhythm, No jugular venous distention (JVD), No murmurs/extra sounds, No nl pulses, No other, No regular rate and rhythm, No rub Gastrointestinal: nl liver, spleen, soft, No ascites, No bowel sounds, No distended, No firm, No hepatomegaly, No mass , No non-tender, No other, No rebound or guarding, No splenomegaly, No surgical scars, No tender Musculoskeletal: joint tenderness, muscle tone, muscle weakness, range of motion Skin: nl turgor, rash or lesions (left forearm.) Results Result Diagram: 05/11/17 0952 05/11/17 0953 Results 24 hrs Laboratory Tests Test 05/11/17 09:52 05/11/17 09:53 05/11/17 11:53 05/11/17 17:19 White Blood Count 9.7 Red Blood Count 3.90 L Hemoglobin 11.3 L Hematocrit 33.7 L Mean Corpuscular Volume 86.4 Mean Corpuscular Hemoglobin 29.0 Mean Corpuscular Hemoglobin Concent 33.5 Red Cell Distribution Width 13.9 Platelet Count 211 Mean Platelet Volume 9.8 Neutrophils % 79.4 H Lymphocytes % 13.4 L Monocytes % 4.5 Eosinophils % 2.1 Basophils % 0.4 Nucleated Red Blood Cells % 0.0 Neutrophils # 7.7 H Lymphocytes # 1.3 Monocytes # 0.4 Eosinophils # 0.2 Basophils # 0.0 Nucleated Red Blood Cells # 0.0 Sodium Level 137 Potassium Level 4.5 Chloride Level 103 Carbon Dioxide Level 27 Anion Gap 12 Blood Urea Nitrogen 33 H Creatinine 1.73 H Glucose Level 147 Calcium Level 9.0 Bedside Glucose 148 219 Test 05/11/17 20:37 05/12/17 02:21 05/12/17 05:59 05/12/17 07:59 Bedside Glucose 200 179 163 Iron Level 23 L Total Iron Binding Capacity 260 Percent Iron Saturation 9 L Medications Medications Current Medications Ondansetron HCl (Zofran Inj) 4 mg Q6H PRN IV NAUSEA AND/OR VOMITING; Start at 03:30 Nitroglycerin (Nitroglycerin (Sl Tab) 0.4 Mg) 1 tab Q5M PRN SL CHEST PAIN Last administered on 05/09/17t 05:35; Admin Dose 1 TAB; Start 05/09/17 at 03:30 Acetaminophen (Tylenol Liquid) 650 mg Q6H PRN PO PAIN LEVEL 1-3 OR FEVER; Start 05/09/17 at 03:30 Aspirin (Halfprin) 81 mg DAILY PO Last administered on 05/12/17 08:18; Admin Dose 81 MG; Start 05/09/17 at 09:00 Ticagrelor (Brilinta) 90 mg BID PO Last administered on 05/12/17 08:21; Admin Dose 90 MG; Start 05/09/17 at 09:00 Atorvastatin Calcium (Lipitor) 80 mg DAILY@21 PO Last administered on 20:37; Admin Dose 80 MG; Start 05/09/17 at 21:00 Diagnostic Test (Pha) (Accu-Chek) 1 ea 02 XX Last administered on 05/11/17 02: 53; Admin Dose 1 EA; Start 05/10/17 at 02:00 Miscellaneous Information 1 ea NOTE XX ; Start 05/09/17 at 06:15 Glucose (Glutose) 15 gm Q15M PRN PO DECREASED GLUCOSE; Start 05/09/17 at 06:15 Glucose (Glutose) 22.5 gm Q15M PRN PO DECREASED GLUCOSE; Start 05/09/17 at 06: 15 Dextrose (D50w Syringe) 25 ml Q15M PRN IV DECREASED GLUCOSE; Start 05/09/17 at 06:15 Dextrose (D50w Syringe) 50 ml Q15M PRN IV DECREASED GLUCOSE; Start 05/09/17 at 06:15 Glucagon (Glucagen) 1 mg Q15M PRN IM DECREASED GLUCOSE; Start 05/09/17 at 06: 15 Glucose (Glutose) 15 gm Q15M PRN BUCCAL DECREASED GLUCOSE; Start 05/09/17 at 06:15 Insulin Glargine (Lantus) 16 unit DAILY@08 SC Last administered on 05/12/17 08 :06; Admin Dose 16 UNIT; Start 05/09/17 at 13:00 Pantoprazole (Protonix Tab) 40 mg DAILY@06 PO Last administered on 05/12/17 06 :26; Admin Dose 40 MG; Start 05/10/17 at 06:00 Polysaccharide Iron Complex (Niferex-150) 1 cap BID PO ; Start 05/12/17 at 09:30 ; Status UNV Magnesium Chloride (Mag 64) 64 mg BID PO ; Start 05/12/17 at 09:30; Status UNV JASON BALTAZAR MD May 12, 2017 09:26
[2017-05-12] MEDS: MAGNESIUM CHLORIDE (SR) 64 MG TAB PO SCH ×2 (11:01→20:00)
[2017-05-12] MEDS: POLYSACCHARIDE IRON COMPLEX CAP PO SCH ×2 (11:01→20:05)
--- NOTE | 2017-05-12 14:34 | CONS ---
Date/Time of Note Date/Time of Note DATE: 05/12/17 TIME: 14:30 Consult Date/Type/Reason Admit Date/Time May 09, 2017 at 03:07 Initial Consult Date Type of Consultation: cv Subjective Cardiology follow up S: dw/ staff and rhythm was reviewed. pt remains in NSR pt denies any chest pain or pressure or palpitations. pt and family want to go home O: General: no acute distress HEENT: NC/AT. pupils are equal. round. NECK: NO JVD. no stridor. CV: RRR. systolic murmur; no gallop or rubs. PULM: no wheezing or rhonchi. GI: SOFT, NT, ND, no rebound or guarding Extremity: trace B/L LE edema. no clubbing. neuro: awake and alert, OX3. Psych: calm and pleasant rectal: deferred Objective Vital Signs Date Time Temp Pulse Resp B/P Pulse Ox O2 Delivery O2 Flow Rate FiO2 05/12/17 12:04 70 05/12/17 11:29 98.0 18 114/55 98 05/11/17 18:00 Room Air 05/09/17 06:30 10.0 Intake and Output 05/11/17 05/11/17 05/12/17 14:59 22:59 06:59 Intake Total 490 ml 120 ml 650 ml Output Total 1200 ml 600 ml Balance -710 ml -480 ml 650 ml Results/Medications Result Diagram: 05/11/17 0952 05/11/17 0953 Results 24 hrs Laboratory Tests Test 05/11/17 17:19 05/11/17 20:37 05/12/17 02:21 05/12/17 05:59 Bedside Glucose 219 200 179 Iron Level 23 L Total Iron Binding Capacity 260 Percent Iron Saturation 9 L Test 05/12/17 07:59 05/12/17 11:37 Bedside Glucose 163 265 H Medications Current Medications Ondansetron HCl (Zofran Inj) 4 mg Q6H PRN IV NAUSEA AND/OR VOMITING; Start at 03:30 Nitroglycerin (Nitroglycerin (Sl Tab) 0.4 Mg) 1 tab Q5M PRN SL CHEST PAIN Last administered on 05/09/17t 05:35; Admin Dose 1 TAB; Start 05/09/17 at 03:30 Acetaminophen (Tylenol Liquid) 650 mg Q6H PRN PO PAIN LEVEL 1-3 OR FEVER; Start 05/09/17 at 03:30 Aspirin (Halfprin) 81 mg DAILY PO Last administered on 05/12/17 08:18; Admin Dose 81 MG; Start 05/09/17 at 09:00 Ticagrelor (Brilinta) 90 mg BID PO Last administered on 05/12/17 08:21; Admin Dose 90 MG; Start 05/09/17 at 09:00 Atorvastatin Calcium (Lipitor) 80 mg DAILY@21 PO Last administered on 20:37; Admin Dose 80 MG; Start 05/09/17 at 21:00 Diagnostic Test (Pha) (Accu-Chek) 1 ea 02 XX Last administered on 05/11/17 02: 53; Admin Dose 1 EA; Start 05/10/17 at 02:00 Miscellaneous Information 1 ea NOTE XX ; Start 05/09/17 at 06:15 Glucose (Glutose) 15 gm Q15M PRN PO DECREASED GLUCOSE; Start 05/09/17 at 06:15 Glucose (Glutose) 22.5 gm Q15M PRN PO DECREASED GLUCOSE; Start 05/09/17 at 06: 15 Dextrose (D50w Syringe) 25 ml Q15M PRN IV DECREASED GLUCOSE; Start 05/09/17 at 06:15 Dextrose (D50w Syringe) 50 ml Q15M PRN IV DECREASED GLUCOSE; Start 05/09/17 at 06:15 Glucagon (Glucagen) 1 mg Q15M PRN IM DECREASED GLUCOSE; Start 05/09/17 at 06: 15 Glucose (Glutose) 15 gm Q15M PRN BUCCAL DECREASED GLUCOSE; Start 05/09/17 at 06:15 Insulin Glargine (Lantus) 16 unit DAILY@08 SC Last administered on 05/12/17 08 :06; Admin Dose 16 UNIT; Start 05/09/17 at 13:00 Pantoprazole (Protonix Tab) 40 mg DAILY@06 PO Last administered on 05/12/17 06 :26; Admin Dose 40 MG; Start 05/10/17 at 06:00 Polysaccharide Iron Complex (Niferex-150) 1 cap BID PO Last administered on 11:01; Admin Dose 1 CAP; Start 05/12/17 at 10:30 Magnesium Chloride (Mag 64) 64 mg BID PO Last administered on 05/12/17t 11:01; Admin Dose 64 MG; Start 05/12/17 at 10:30 Assessment/Plan Chief Complaint/Hosp Course 1. STEMI 2. S/P PCI RCA 3. multivessel CAD with LCX DISEASE. 4. YANA 5. HTN 6. Dyslipidemia cont ASA/ brilinta statin will add betablocker. f/u renal fx dc planning when ok with IM,. outpt PCI LCX once renal fx remains stable Out pt follow up with Dr Lin, Thank you CAIO PITTS MD [facility] Problems: CAIO PITTS MD May 12, 2017 14:34
[2017-05-12] MEDS ORDERED: METOPROLOL (XL) 25 MG TAB PO SCH (15:00)
[2017-05-12] MEDS ORDERED: SLOMAG PO (15:18)
[2017-05-12] MEDS ORDERED: PANT40TA3 PO (15:18)
[2017-05-12] MEDS ORDERED: TICA90TA PO (15:18)
[2017-05-12] MEDS ORDERED: ASPI-664 PO (15:18)
[2017-05-12] MEDS ORDERED: ATOR80TA75 PO (15:18)
[2017-05-12] MEDS ORDERED: NIF150 PO (15:18)
[2017-05-12] MEDS ORDERED: METO-335 PO (15:18)
[2017-05-12] MEDS ORDERED: NITR0.4T32 SL (15:18)
--- NOTE | 2017-05-12 18:39 | PDOCDIS ---
Discharge Instructions CONDITION Patient Condition: Fair HOME CARE INSTRUCTIONS: Diet Instructions: 2gm NaSpecial Diet: Cardiac ACTIVITY: Activity Restrictions: Slowly Increase Activity Do not Drive Do not operate Machinery Do not operate Power Tool Cardiac Rehab Special Exercises Bathing Restrictions: Shower FOLLOW UP/APPOINTMENTS Follow-up Plan to in 2 days To in 5 days. SCHOOL/WORK RELEASE May return to School/Work with: no schools. JASON BALTAZAR MD May 12, 2017 18:39
--- NOTE | 2017-05-12 18:49 | DS ---
Date/Time of Note Date/Time of Note DATE: 05/12/17 TIME: 18:40 Discharge Summary Admission/Discharge Info Admit Date/Time May 09, 2017 at 03:07 Discharge Date/Time 05/12/2017 Discharge Diagnosis 1. IHD angina; acute STEMI:s/p drug-eluting stent placed in the RCA. Patient will continue on dual antiplatelet therapy. outpatient f/u. 2 diabetes mellitus type 2: hold metformine. 3 hypertension: We will continue patient's home medications. She will need to monitor renal function as an outpatient. 4.Dyslipidemia 5.Memory impairment 6.Obesity 7. LBP 8.BOOGIE of multiple joints 9.Anxiety d/o 10.Nausea and vomiting improved 11.Bradycardia 12.Hx of smoking and likes fatty food 13.Delusional ideas (everything else, except known risk factors,according to her, as a target to blame for her mi) about the disease and her genetics and life style. Again discussed the details of prevention of next CA. Doctor's and patient's role. 14.Hypotension 15.Hypomagnesemia 16.Constipation 17.CKD with elevated creatinine 1,7 after coronary intervention.recheck in 2 days in the office. Patient Condition: Fair Hx of Present Illness This is a 71-year-old female who presented to the ER with chest pain. She was having cp on and off more than a month but last week it become more troublesome. 05/03/2017 they flue to . She realized that she can't walk as she was able to walk before due to of a sob and ss pressure sensation. She was using some tablets from [facility] [employer] and relaxing drops which helped her. 3 days ago they returned from . Her pressure sensation got worse. Last night despite of cp and pressure sensation she went to the bed. She was unable to lay down. He straggled for air and to overcome a cp. Condition got worse at midnight, when the cp become intolerable. Nobody was able to help her except the grandson who is a student in [employer]. Patient also was noted to be nauseous, vomited, become diaphoretic and she was thinking that se is going to dye. He activated a system and paramedics arrived. 4 tablets of aspirin with other meds were given. Stat STEMI was called. She realized the necessity of the procedure and agreed to perform a PTCA. Patient was taken into the [facility] Director and had a stent to the RCA put in. Now she fells better. Hospital Course This is a 71-year-old female who presented to the ER with chest pain. Stat STEMI was called. PTCA by . Patient was taken into the [facility] and had a stent to the RCA put in. Her pressure in substernal area totally disappeared. Iv magnesium supplementation made her left arm painful, swollen,red and itchy. Will continue as p.o. Brillanta will be given today true any open pharmacy. Low i9ronm also will be corrected as an outpatient. Home Meds Reported Medications Ticagrelor* (Brilinta*) 90 Mg Tablet, 90 MG PO Q12, TAB 05/12/17 Polysaccharide Iron Complex* (NIFEREX-150*) 1 Cap Cap, 1 CAP PO BID, CAP 05/12/17 Pantoprazole* (Protonix*) 40 Mg Tablet.dr, 40 MG PO DAILY, TAB 05/12/17 Nitroglycerin* (Nitroglycerin* SL) 0.4 Mg Tab.subl, 0.4 MG SL Q5MIN Y for CHEST PAIN, BOTTLE 05/12/17 Metoprolol Succinate* (Toprol XL*) 25 Mg Tab.sr.24h, 12.5 MG PO DAILY, #30 TAB 05/12/17 Magnesium Chloride* (Mag 64*) 64 Mg Tabsr, 64 MG PO BID, TAB 05/12/17 Atorvastatin* (Atorvastatin*) 80 Mg Tablet, 80 MG PO QHS, #30 TAB 05/12/17 Aspirin* (Aspirin* (EC)) 81 Mg Tablet., 81 MG PO DAILY, TAB 05/12/17 Follow-up Plan to in 2 days To in 5 days. Primary Care Provider Moshe Baltazar MD Time spent on discharge: > 30 minutes Pending Labs Laboratory Tests Test 05/11/17 20:37 05/12/17 02:21 05/12/17 05:59 05/12/17 07:59 Bedside Glucose 200mg/dL (70-220) 179mg/dL (70-220) 163mg/dL (70-220) Iron Level 23ug/dl (35-150) Total Iron Binding Capacity 260ug/dl (241-421) Percent Iron Saturation 9% SAT (22-52) Test 05/12/17 11:37 05/12/17 17:42 Bedside Glucose 265mg/dL (70-220) 198mg/dL (70-220) MOSHE BALTAZAR MD May 12, 2017 18:49
[2017-05-12] MEDS: ATORVASTATIN 80 MG TAB PO SCH (20:05)
== END 2017-05-12 20:15 | disposition home or self-care (01) | DRG 246 ==
LOC: E/R 02:27 → SDS 03:06 → CCL 03:06 → ICU 03:07 → TEL 05-11 18:40
PROVIDERS: ADMIT Family Medicine; ATTEND Family Medicine
PROC: B215YZZ Fluoroscopy of Left Heart using Other Contrast (ICD-10-PCS; 2017-05-09)
PROC: 3E033PZ Introduction of Platelet Inhibitor into Peripheral Vein, Percutaneous Approach (ICD-10-PCS; 2017-05-09)
PROC: B240ZZ3 Ultrasonography of Single Coronary Artery, Intravascular (ICD-10-PCS; 2017-05-09)
PROC: 027034Z Dilation of Coronary Artery, One Artery with Drug-eluting Intraluminal Device, Percutaneous Approach (ICD-10-PCS; principal; 2017-05-09 06:00)
PROC: 4A023N7 Measurement of Cardiac Sampling and Pressure, Left Heart, Percutaneous Approach (ICD-10-PCS; 2017-05-09 06:00)
PROC: B211YZZ Fluoroscopy of Multiple Coronary Arteries using Other Contrast (ICD-10-PCS; 2017-05-09 06:00)
DX: I21.19 ST elevation (STEMI) myocardial infarction involving other coronary artery of inferior wall (principal); I50.33 Acute on chronic diastolic (congestive) heart failure; N17.9 Acute kidney failure, unspecified; I13.0 Hypertensive heart and chronic kidney disease with heart failure and stage 1 through stage 4 chronic kidney disease, or unspecified chronic kidney disease; N18.9 Chronic kidney disease, unspecified; E11.22 Type 2 diabetes mellitus with diabetic chronic kidney disease; I25.10 Atherosclerotic heart disease of native coronary artery without angina pectoris; E78.5 Hyperlipidemia, unspecified; E03.9 Hypothyroidism, unspecified; K21.9 Gastro-esophageal reflux disease without esophagitis; F17.210 Nicotine dependence, cigarettes, uncomplicated; E83.42 Hypomagnesemia; F41.9 Anxiety disorder, unspecified; R00.1 Bradycardia, unspecified; K59.00 Constipation, unspecified; M54.5 Low back pain; Z79.4 Long term (current) use of insulin; Z79.84 Long term (current) use of oral hypoglycemic drugs; Z79.02 Long term (current) use of antithrombotics/antiplatelets; Z79.82 Long term (current) use of aspirin
CPT/HCPCS: 36415; 71010; 80048; 80053; 80061; 82962; 83036; 83540; 83735; 83880; 84443; 84484; 85025; 87081; 92978; 93005; 93306; 93458; 96374; 96375; 97163; C1725; C1760; C1874; C1887; C1894; C9113; C9606; J0583; J1644; J1815; J1940; J2250; J2270; J2405; J3010; J3475; J7030; J7040; Q9967